=== PATIENT | female | born 1950 | race Caucasian/White ===

== ENCOUNTER 2017-05-16 11:50 | Emergency (ER) | payer MEDICARE, BC ==
[2017-05-16] MEDS ORDERED: ORPHENADRINE CITRATE 30 MG/ML VIAL IM ONE (12:19)
[2017-05-16] MEDS ORDERED: KETOROLAC TROMETHAMINE 60 MG/2 ML VIAL IM ONE ×2 (12:19→12:23)
--- NOTE | 2017-05-16 12:20 | ERNOTE ---
Back Pain ER HPI Date of Service: 05/16/17 Presenting Symptoms: injury/pain to back Time Seen by Provider: 05/16/17 12:14 Source: patient, RN notes reviewed Exam Limitations: no limitations Immunizations: IMMUNIZATION HX History of Influenza Vaccine Yes Allergies/Adverse Reactions: Allergies No Known Allergies Allergy (Verified 05/16/17 12:01) Home Medications: HOME MEDICATIONS Cyclobenzaprine HCl [Flexeril] 10 mg PO TID PRN #30 tab 05/16/17 [Last Taken Unknown] HYDROcodone/ACETAMINOPHEN [[place] 5-325] 1 - 2 tab PO Q6H PRN #20 tab 05/16/17 [ Last Taken Unknown] Ibuprofen [Motrin] 600 mg PO Q6H PRN #40 tab 05/16/17 [Last Taken Unknown] - Pain Score Pain Score #1 Pain Score: 10 Narrative: 67 year old female presents with low back pain began after she stepped in a hole several days ago. She did not fall, but reports that she "bear" her entire body. The pain has been gradually worsening. She saw her chiropractor today who recommended that she go to the ER for a MRI. She has had back pain intermittently over the years in the same region, but it has never been this severe. She took leftover tramadol today with no improvement. Timing: Reports: constant, getting worse Quality/Severity: Reports: severe, aching Location of pain: Reports: lower back, radiating to rt thigh/leg, radiating to lf thigh/leg Recent Injury?: Reports: yes Possible Precipitating Factor: Reports: other Associated Symptoms: Reports: difficulty walking. Denies: constipation/ incontinence, nausea/vomiting, problems urinating, numbess/weakness in legs Prior Treament: Reports: similar symptoms before. Denies: recently seen Review of Systems - Review of Systems Constitutional: Absent: recent illness, fever, chills EYE: Present: no symptoms reported ENT: Present: no symptoms reported Respiratory: Absent: shortness of breath, cough Cardiology: Absent: chest pain, syncope, edema Gastrointestinal/Abdominal: Absent: nausea, abdominal pain Genitourinary: Present: See HPI Musculoskeletal: Present: back pain, muscle pain. Absent: joint pain Skin: Absent: lesions, lumps, change in color Neurological: Present: tingling. Absent: weakness, numbness Endocrine: Present: no symptoms reported Hematologic/Lymphatic: Present: no symptoms reported Psych: Present: no symptoms reported - Patient's Past Medical History Patient History - Medical: No pertinent hx Patient History - Cardiac/Respiratory: No pertinent hx Patient History - Cancer: No Hx of Cancer Patient History - Surgical Procedures: Tubal Ligation, T & A Patient History - Other: None LMP (females 10-50): Menopausal - Social History Living Situations: home Abuse History: No History of abuse Psych History: No pertinent hx Alcohol Use: none Drug Use: none - Immunizations History of Influenza Vaccine: Yes Physical Exam - Physical Exam General Appearance: Present: wd/wn, alert, moderate distress Head Exam: Present: normal inspection, no evidence of injury Neck: Present: normal inspection, nontender, supple Respiratory: Present: no respiratory distress, normal breath sounds, no accessory muscle use, lungs clear Cardiovascular/Chest: Present: regular rate, rhythm, no murmur Extremity Exam: Present: normal inspection, no edema Neurological Exam: Present: alert, oriented, normal mood/affect, no motor/ sensory deficits Skin Exam: Present: normal color, warm/dry ED Progress - Vital Signs Patient's Vital Signs:: I have reviewed the patient's vital signs. Vital Signs: Vital Signs 05/16/17 11:55 Temperature 36.3 C L Pulse Rate 63 Respiratory 12 Rate Blood Pressure 105/62 O2 Sat by Pulse 98 Oximetry - X-Ray X-Ray #1 X-Ray: lumbosacral Interpretation: Reviewed by me X-ray Comments: Moderate to severe degenerative disc disease at L4-L5 and L5-S1 - Progress/Reassessment Chief Complaint: Back Pain Progress:: Improved Departure Clinical Impression: Low back pain radiating to both legs - Departure Disposition: Home Follow Up Needed Condition: Good Instructions: Back Pain, Adult Additional Instructions: Ice or heat to sore area Pain medication may cause constipation and you may need a laxative The muscle relaxant and the pain medication can both cause drowsiness Make sure you are taking the ibuprofen with food Follow up with your doctor for further evaluation DA Prescriptions: Cyclobenzaprine HCl [Flexeril] 10 mg PO TID PRN #30 tab PRN Reason: MUSCLE SPASMS HYDROcodone/ACETAMINOPHEN [[place] 5-325] 1 - 2 tab PO Q6H PRN #20 tab PRN Reason: Pain Ibuprofen [Motrin] 600 mg PO Q6H PRN #40 tab PRN Reason: Pain
[2017-05-16] MEDS ORDERED: ORPHENADRINE CITRATE 30 MG/ML VIAL ONE (12:23)
[2017-05-16] MEDS ORDERED: HYDROcodone/ACETAMINOPHEN 1 EACH TABLET PO ONE (14:06)
[2017-05-16 14:07] VITALS: BP 104/82
[2017-05-16] MEDS ORDERED: HYDROcodone/ACETAMINOPHEN 1 EACH TABLET ONE (14:08)
== END 2017-05-16 14:20 | disposition home or self-care (01) ==
LOC: ER 11:50
DX: M54.5 Low back pain (principal); X58.XXXA Exposure to other specified factors, initial encounter